=== PATIENT | male | born 1990 | race American Indian/Alaskan Native ===

== ENCOUNTER 2017-04-16 06:28 | Inpatient (IN) | payer MEDICAID ==
[2017-04-16 06:33] VITALS: O2SAT 98; BMI 36.5
--- NOTE | 2017-04-16 06:46 | ED PDOC ---
Arrival/HPI - General Chief Complaint: Medical Clearance Time Seen by Provider: 04/16/17 06:43 - History of Present Illness Narrative History of Present Illness (Text): 04/16/17 06:43 26yo male, transferred from outpatient facility for admission to [facility]. patient states he has suicidal ideations with plan to cut his wrists. Denies homicidal ideations. States he has depressive thoughts. denies chest pain , SOB/MOSQUERA. No other complaints. Past Medical History - Infectious Disease Hx of Infectious Diseases: None - Psychiatric Hx Anxiety: Yes Hx Depression: Yes Hx Substance Use: No - Surgical History Hx Orthopedic Surgery: Yes (L knee surgery) - Anesthesia Hx Anesthesia: Yes Family/Social History - Physician Review Nursing Documentation Reviewed: Yes Family/Social History: Unknown Family HX Smoking Status: Never Smoked Hx Alcohol Use: No Hx Substance Use: No Allergies/Home Meds Allergies/Adverse Reactions: Allergies No Known Allergies Allergy (Verified 04/16/17 06:33) Physical Exam - Physical Exam Narrative Physical Exam (Text): 04/16/17 06:45 - Review of Systems Constitutional: Normal. absent: Fatigue, Weight Change, Fevers Eyes: Normal ENT: denies sore throat, denies tristhmus Respiratory: Normal. absent: SOB, Cough, Sputum Cardiovascular: absent: Chest Pain, Palpitations, Syncope Gastrointestinal: Normal. absent: Abdominal Pain, Diarrhea, Nausea, Vomiting Genitourinary: Normal. absent: Dysuria, Frequency, Hematuria Musculoskeletal: Normal. absent: Arthralgias, Back Pain, Neck Pain Skin: no rashes, no erythema Neurological: absent: Focal Weakness Endocrine: Normal Hemo/Lymphatic: Normal Psychiatric: No homicidal ideations. Depressive thoughts and suicidal ideations. Physical exam Patient appears age appropriate in no distress, speaking full sentences without difficulty - Systems Exam Head: Present: Atraumatic, Normocephalic Pupils: Present: PERRL Extroacular Muscles: Present: EOMI Conjunctiva: Present: Normal Mouth: Present: Moist Mucous Membranes Neck: Present: Normal Range of Motion. No: MIDLINE TENDERNESS, Paraspinal Tenderness Respiratory/Chest: Present: Clear to Auscultation, Good Air Exchange. No: Respiratory Distress, Accessory Muscle Use, Tachypneic Cardiovascular: Present: Regular Rate and Rhythm, Normal S1, S2, Peripheal Pulses Present. No: Murmurs Abdomen: Present: Normal Bowel Sounds. No: Tenderness, Distention, Peritoneal Signs, Rebound, Guarding Back: Present: Normal Inspection. No: Midline Tenderness, Paraspinal Tenderness Upper Extremity: Present: Normal Inspection. No: Cyanosis, Edema Lower Extremity: Present: Normal Inspection. No: Edema Neurological: Present: GCS=15, Speech Normal, cranial nerves II through XII fully intact with no cerebellar abnormality, neurosensory fully intact. No focal neurological deficits. Skin: Present: Warm, Dry, Normal Color. No: Rashes Lymphatic: Present: OX3, NI, NC Psychiatric: Present: Alert, Oriented x 3, Normal Insight, Normal Concentration Vital Signs Reviewed: Yes Vital Signs Temp Pulse Resp BP Pulse Ox 04/16/17 06:33 98.3 F 82 18 140/70 98 Temperature: Afebrile Blood Pressure: Normal Pulse: Regular Respiratory Rate: Normal Appearance: Positive for: Well-Appearing Pain Distress: None Mental Status: Positive for: Alert and Oriented X 3 Medical Decision Making ED Course and Treatment: 04/16/17 06:45 26yo male for psych admission for suicidal ideations and depressive thoughts. pt in no distress, aware of and agrees with plan Disposition/Present on Arrival - Present on Arrival Any Indicators Present on Arrival: No History of DVT/PE: No History of Uncontrolled Diabetes: No Urinary Catheter: No History of Decub. Ulcer: No History Surgical Site Infection Following: None - Disposition Have Diagnosis and Disposition been Completed?: Yes Diagnosis: Suicidal ideations Disposition: HOSPITALIZED Disposition Time: 06:46 Patient Plan: Admission Condition: FAIR
[2017-04-16] MEDS ORDERED: Alum-Mag Hydrox-Simethicone Susp (30 mL) PO PRN (10:31)
[2017-04-16] MEDS ORDERED: Magnesium Hydroxide Susp 30 ml UD PO PRN (10:31)
--- NOTE | 2017-04-16 12:31 | PCM.BM ---
<Pat Dong - Last Filed: 04/16/17 14:13> Treatment Plan Problems - Problems identified on initial assessmt hallucination Date Initiated: 04/16/17 Time Initiated: 14:19 Assessment reference: NA Status: Active Priority: 1 Treatment team patient informa Patient Assests: adapts well, ADL independent, negotiates basic needs Patient Liabilities: live alone, poor support system, auditory impairment - Milieu Protocol Maintain good personal hygiene: daily Encourage regular showers, daily Remind patient to perform daily oral care, daily Assist patient to perform ADL's Maintain personal safety: every shift Educate patient to report safety concerns to staff, every shift Monitor environment for contraband/sharps Medication safety: Monitor for expected outcome, potential side effects: every shift, Assess barriers to learning: every shift, Assess readiness for medication education: every shift Discharge/Continuing Care - Education Needs Education Needs: Patient Medication, Patient Diagnosis/Disease Process, Patient Coping Skills, Patient Activities of Daily Living, Patient Personal Hygiene/ Grooming - Discharge Discharge Criteria: Tolerates medication w/o severe side effects, Free of Suicidal thoughts, Normal sleep pattern Discharge to:: Home <Mica Burdick - Last Filed: 04/16/17 15:10> Family Contact Family involvement: Family/SO is involved Family contact: Patient agrees to contact Family contact name: Rolanda Arellano(mother) [phone] Family contacted how many times per week?: 2 - Outside Agency [facility] Care involvment: Following patient during stay, Information-sharing, Not involved, N/A, Other <Giselle Baker - Last Filed: 04/16/17 15:53> DSM5-Treatment Plan - Diagnosis (1) Schizoaffective disorder Status: Acute Interventions: 04/16/17 15:52 * Assess/adjust medications daily and /or as needed * See patient on an individual basis 7x/week to assess status of hallucinations * Discuss risks, benefits, side effects and alternatives of medications * Medication compliance * Compliance with the follow-up appointments * suicide and homicide prevention * Coping strategies * Family involvement * irrigation worker evaluation
--- NOTE | 2017-04-16 14:27 | PCM.BM ---
Treatment Plan Problems - Problems identified on initial assessmt hallucination Time Initiated: 14:19 Assessment reference: NA Status: Active Priority: 1 depression Date Initiated: 04/16/17 Time Initiated: 14:26 Assessment reference: NA Status: Active Priority: 1 Treatment team patient informa Patient Assests: adapts well, ADL independent, negotiates basic needs Patient Liabilities: live alone, poor support system, auditory impairment - Milieu Protocol Maintain good personal hygiene: daily Encourage regular showers, daily Remind patient to perform daily oral care, daily Assist patient to perform ADL's Maintain personal safety: every shift Educate patient to report safety concerns to staff, every shift Monitor environment for contraband/sharps Medication safety: Monitor for expected outcome, potential side effects: every shift, Assess barriers to learning: every shift, Assess readiness for medication education: every shift Discharge/Continuing Care - Education Needs Education Needs: Patient Medication, Patient Diagnosis/Disease Process, Patient Coping Skills, Patient Activities of Daily Living, Patient Personal Hygiene/ Grooming - Discharge Discharge Criteria: Tolerates medication w/o severe side effects, Free of Suicidal thoughts, Normal sleep pattern Discharge to:: Home
--- NOTE | 2017-04-16 16:30 | PCM.PSYCH ---
Initial Psychiatric Evaluation - Initial Psychiatric Evaluation Type of Admission: Voluntary Legal Status: Capacity (patient has capacity to sign consent for treatment) Chief Complaint (in patient's own words): "sykes-sykes I just heard something from outside" Vital Signs Temp Pulse Resp BP Pulse Ox 04/16/17 09:50 18 04/16/17 08:09 85 16 116/84 98 04/16/17 06:33 98.3 F 82 18 140/70 98 Patient's Reaction to Hospitalization: depression/psychosis/possible suicidal ideation History of Present Illness and Precipitating Events: shortly patient is 26 years old -Japanese male, self reported history of depression, most likely patient has case of schizophrenia spectrum disorder, patient was transferred [facility] for evaluation of possible depressive symptoms and suicidal ideations. off note from the [facility] reported patient came there for abdominal pain at the moment of discharge patient said that he hears voices and he has thoughts of harming himself. labs reviewed, transfer documents reviewed pt was seen at the treatment team meeting, presented to have catatonia, flat affect, slow motion, severe thought blocking, difficult to express himself, ADLs. Patient said that she was depressed, was not taking his medications Zoloft, patient said that he was feeling hopeless and helpless, was hearing voices "a little bit", denied paranoid ideations. Patient denied previous psychiatric admissions, denied suicidal attempts in the past. but as per report from [facility] patient was followed up by [facility] [place] but was noncompliant with the medications , was in partial hospitalization but not attending, was on zyprexa 10mg po daily. Patient denied using drugs, reported smoking about 10 cigarettes a day, counseling provided. Patient denied using drugs, denied drinking alcohol. Patient reported that he has no support in the [place], his mother and father from [facility], patient said that he came here to the [place] at age of 16 all by himself. Patient does not have history of working, collapsed SSI, patient is homeless. During the treatment team meeting, all of a sudden patient started to laugh out loud, when was asked why he is watching patient said "I heard something from outside". Obviously patient is psychotic and disorganized and internally preoccupied. Medical history: pt denied pt denied h/o abuse pt denied family h/o mental illness Current Medications: Active Medications Generic Name Dose Route Start Last Admin Trade Name Freq PRN Reason Stop Dose Admin Acetaminophen 650 mg 04/16/17 10:29 Tylenol 325mg Tab PO Q6H PRN Pain, moderate (4-7) Al Hydrox/Mg Hydrox/Simethicone 30 ml 04/16/17 10:31 Maalox Plus 30 Ml PO DAILY PRN Indigestion / Heartburn Lorazepam 0.5 mg 04/16/17 16:00 Ativan PO BID REINA Protocol Magnesium Hydroxide 30 ml 04/16/17 10:31 Milk Of Magnesia PO DAILY PRN Constipation Nicotine 1 patch 04/16/17 14:30 Nicoderm Cq TD DAILY REINA Risperidone 0.5 mg 04/16/17 22:00 Risperdal Tab PO AMHS REINA Protocol Risperidone 0.5 mg 04/17/17 08:00 Risperdal Tab PO DAILY REINA Protocol Sertraline HCl 50 mg 04/16/17 14:15 Zoloft PO DAILY REINA Trazodone HCl 50 mg 04/16/17 14:17 Desyrel PO HS PRN Insomnia Ziprasidone 20 mg 04/16/17 14:16 Geodon Inj IM Q6H PRN agitation/pscyhosis Protocol Past Psychiatric History - Past Psychiatric History Previous Treatment History: None Prior Professional Help: pt denied, but this wrier doubt Prior Psychiatric Treatment: pt denied At what hospital: pt denied Duration: pt denied Nature of Treatment: pt denied Explanation of prior treatment: pt denied History of Abuse: pt denied History of ETOH/Drug Use: pt denied History of Family Illness: pt denied Pertinent Medical Hx (Current Medical&Sleep Prob, Allergies): Allergies Allergy/AdvReac Type Severity Reaction Status Date / Time No Known Allergies Allergy Verified 04/16/17 10:33 Review of Systems - Review of Systems Systems not reviewed;Unavailable: Acuity of Condition - EENT Eyes: As Per HPI Ears: As Per HPI Nose/Mouth/Throat: As Per HPI - Cardiovascular Cardiovascular: As Per HPI - Respiratory Respiratory: As Per HPI - Gastrointestinal Gastrointestinal: As Per HPI - Genitourinary Genitourinary: As Per HPI - Reproductive: Male Reproductive:Male: As Per HPI - Musculoskeletal Musculoskeletal: As Par HPI - Integumentary Integumentary: As Per HPI - Neurological Neurological: As Per HPI - Psychiatric Psychiatric: As Per HPI - Endocrine Endocrine: As Per HPI - Hematologic/Lymphatic Hematologic: As Per HPI Mental Status Examination - Personal Presentation Personal Presentation: Looks stated age - Affect Affect: Flat, Other (at times inappropriate) - Motor Activity Motor Activity: Psychomotor Retardation - Reliability in Providing Information Reliability in Providing Information: Poor, due to alteration in thoughts, Poor , due to altered mood, Poor, due to cognitve impairment - Speech Speech: Disorganized - Mood Mood: Depressed - Formal Thought Process Formal Thought Process: Hallucinations, Delusions, Paranoia, Other (thought blocking, poverty of thoughts) - Hallucinations/Delusions Hallucinations: Auditory - Obsessions/Compulsions Obsessions: None Compulsions: None - Cognitive Functions Orientation: Person, Place Sensorium: Alert Attention/Concentration: Easily distracted Abstract Thinking: [place] Estimate of Intelligence: Below average Judgement: Intact, as evidence by: Insight regarding need for hospitalization - Risk Risk: Self-mutilation, Diminished functioning - Strength & Assets Inventory Strength & Assets Inventory: Cooperative - Limitations Limitations: Other (poor socidal support, homelessness, noncompliance with meds) DSM 5 DX - DSM 5 DSM 5 Diagnosis: r/o schizoaffective r/o schizophrenia - Recommended/Plan of Treatment Treatment Recommendations and Plan of Treatment: Milieu, structure, supportive therapy zyprexa 5mg po amhs (as per report pt was on 10mg daily) Zoloft will be resumed 50 mg daily for depressive symptoms Ativan 0.5 mg twice a day for catatonia Trazodone 50 mg at the nighttime for insomnia as needed Medical team evaluation Collateral needs to be obtained chute worker evaluation We will monitor closely Projected ELOS: 7 days Prognosis: fair Discharge Plan and Discharge Criteria: Pt will be not depressed or manic, will be more hopeful, will be not psychotic or anxious, will be not having thoughts of harming self or others, will be tolerating medications well, will not have major side effects, will be able to function, will not pose threat to self or others. - Smoking Cessation Smoking Cessation Initiated: Yes
[2017-04-16] MEDS ORDERED: OLANZapine 5 mg Disintegrating Tab PO STA (18:24)
[2017-04-16] MEDS ORDERED: Divalproex 250 mg DR (BID formulation) PO STA (18:32)
[2017-04-16] MEDS: OLANZapine 5 mg Disintegrating Tab PO SCH (22:33)
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
[2017-04-17] MEDS: Divalproex 250 mg DR (BID formulation) PO SCH ×2 (10:53→16:46)
[2017-04-17] MEDS: OLANZapine 5 mg Disintegrating Tab PO SCH ×2 (10:53→21:07)
--- NOTE | 2017-04-17 12:11 | CP.PCM.CON ---
<RaghavKati sweets - Last Filed: 04/17/17 12:13> History of Present Illness - History of Present Illness History of Present Illness: This is a 26 yo male with past medical hx of depression presenting to hospital with suicidal ideation. Medical consult placed. Pt has suicidal thoughts with thoughts of ending his life. He has a hx of depression for some time now. He wants to kill himself bc he is "always by himself." He has had no plan. He has tried before, cannot say how. He is not hearing any voices. He uses few words when talking. He denies other medical issues. No fevers, chills, vomiting, diarrhea, cp, sob, urinary sx. PMH: Depression PSH: None Allergies: NKDA FH: denies Social hx: No smoking. Heavy drinker. Cocaine use. Stays with friends. Used to work at [employer]. Review of Systems - Review of Systems All systems: reviewed and no additional remarkable complaints except Review of Systems: Negative except per HPI. Past Patient History - Infectious Disease Hx of Infectious Diseases: None - Tetanus Immunizations Tetanus Immunization: Unknown - Past Medical History & Family History Past Medical History?: Yes Past Family History: Reviewed and not pertinent - Past Social History Smoking Status: Never Smoked Cigar Use: No Alcohol: > 2 Drinks/Day Drugs: Cocaine Home Situation {Lives}: Friends Domestic Violence: Negative - CARDIAC Hx Cardiac Disorders: No - PULMONARY Hx Respiratory Disorders: No - NEUROLOGICAL Hx Neurological Disorder: No - HEENT Hx HEENT Problems: No - RENAL Hx Chronic Kidney Disease: No - ENDOCRINE/METABOLIC Hx Endocrine Disorders: No - HEMATOLOGICAL/ONCOLOGICAL Hx Blood Disorders: No - INTEGUMENTARY Hx Dermatological Problems: No - MUSCULOSKELETAL/RHEUMATOLOGICAL Hx Musculoskeletal Disorders: No - GASTROINTESTINAL Hx Gastrointestinal Disorders: No - GENITOURINARY/GYNECOLOGICAL Hx Genitourinary Disorders: No - PSYCHIATRIC Hx Anxiety: Yes Hx Depression: Yes Hx Emotional Abuse: No Hx Physical Abuse: No Hx Sexual Abuse: No Hx Substance Use: No - SURGICAL HISTORY Hx Surgeries: Yes Hx Orthopedic Surgery: Yes (L knee surgery) - ANESTHESIA Hx Anesthesia: Yes Meds Allergies/Adverse Reactions: Allergies Allergy/AdvReac Type Severity Reaction Status Date / Time No Known Allergies Allergy Verified 04/16/17 10:33 - Medications Medications: Current Medications Acetaminophen (Tylenol 325mg Tab) 650 mg PO Q6H PRN PRN Reason: Pain, moderate (4-7) Al Hydrox/Mg Hydrox/Simethicone (Maalox Plus 30 Ml) 30 ml PO DAILY PRN PRN Reason: Indigestion / Heartburn Divalproex Sodium (Depakote Dr (*Bid*)) 250 mg PO BID REINA PRN Reason: Protocol Last Admin: 04/17/17 10:53 Dose: 250 mg Lorazepam (Ativan) 0.5 mg PO BID REINA PRN Reason: Protocol Last Admin: 04/17/17 08:25 Dose: 0.5 mg Magnesium Hydroxide (Milk Of Magnesia) 30 ml PO DAILY PRN PRN Reason: Constipation Nicotine (Nicoderm Cq) 1 patch TD DAILY [facility] Last Admin: 04/17/17 08:25 Dose: 1 patch Olanzapine (Zyprexa Zydis) 5 mg PO DAILY REINA PRN Reason: Protocol Olanzapine (Zyprexa Zydis) 10 mg PO HS REINA PRN Reason: Protocol Sertraline HCl (Zoloft) 50 mg PO DAILY [facility] Last Admin: 04/17/17 08:25 Dose: 50 mg Trazodone HCl (Desyrel) 50 mg PO HS PRN PRN Reason: Insomnia Ziprasidone (Geodon Inj) 20 mg IM Q6H PRN; Protocol PRN Reason: agitation/pscyhosis Last Admin: 04/16/17 19:53 Dose: 20 mg Ziprasidone (Geodon Cap) 20 mg PO Q6 PRN; Protocol PRN Reason: Agitation Physical Exam - Constitutional Appears: Non-toxic, No Acute Distress - Head Exam Head Exam: ATRAUMATIC, NORMAL INSPECTION, NORMOCEPHALIC - Eye Exam Eye Exam: EOMI - ENT Exam ENT Exam: Mucous Membranes Moist - Neck Exam Neck exam: Positive for: Full Rom, Normal Inspection - Respiratory Exam Respiratory Exam: NORMAL BREATHING PATTERN. absent: Respiratory Distress - Cardiovascular Exam Cardiovascular Exam: +S1, +S2 - GI/Abdominal Exam GI & Abdominal Exam: Normal Bowel Sounds, Soft. absent: Tenderness - Extremities Exam Extremities exam: Positive for: full ROM, normal inspection - Back Exam Back exam: NORMAL INSPECTION - Neurological Exam Neurological exam: Alert, Oriented x3 - Psychiatric Exam Psychiatric exam: Normal Affect, Normal Mood - Skin Skin Exam: Dry, Intact, Normal Color, Warm Results - Vital Signs Recent Vital Signs: Last Vital Signs Temp 98.3 F 04/16/17 06:33 Pulse 103 H 04/16/17 16:14 Resp 18 04/16/17 09:50 BP 129/86 04/16/17 16:14 Pulse Ox 98 04/16/17 08:09 Assessment & Plan - Assessment and Plan (Free Text) Assessment: This is a 26 yo male with past medical hx of depression presenting for suicidal ideation. Medical consult placed 1. Depression r/o major depressive disorder -management per psych -cbc, cmp -ua, urine culture -tsh -lipid panel -blood glucose -tylenol for pain -1:1 sitter 2. Suicidal ideation -no active thoughts or plan -management per psych -1:1 sitter 3. Regular diet discussed with Dr. Rod <Josh Rod - Last Filed: 04/17/17 16:41> Meds - Medications Medications: Current Medications Acetaminophen (Tylenol 325mg Tab) 650 mg PO Q6H PRN PRN Reason: Pain, moderate (4-7) Al Hydrox/Mg Hydrox/Simethicone (Maalox Plus 30 Ml) 30 ml PO DAILY PRN PRN Reason: Indigestion / Heartburn Divalproex Sodium (Depakote Dr (*Bid*)) 250 mg PO BID REINA PRN Reason: Protocol Last Admin: 04/17/17 10:53 Dose: 250 mg Lorazepam (Ativan) 0.5 mg PO BID REINA PRN Reason: Protocol Last Admin: 04/17/17 08:25 Dose: 0.5 mg Magnesium Hydroxide (Milk Of Magnesia) 30 ml PO DAILY PRN PRN Reason: Constipation Nicotine (Nicoderm Cq) 1 patch TD DAILY REINA Last Admin: 04/17/17 08:25 Dose: 1 patch Olanzapine (Zyprexa Zydis) 5 mg PO DAILY REINA PRN Reason: Protocol Olanzapine (Zyprexa Zydis) 10 mg PO HS REINA PRN Reason: Protocol Sertraline HCl (Zoloft) 50 mg PO DAILY REINA Last Admin: 04/17/17 08:25 Dose: 50 mg Trazodone HCl (Desyrel) 50 mg PO HS PRN PRN Reason: Insomnia Ziprasidone (Geodon Inj) 20 mg IM Q6H PRN; Protocol PRN Reason: agitation/pscyhosis Last Admin: 04/16/17 19:53 Dose: 20 mg Ziprasidone (Geodon Cap) 20 mg PO Q6 PRN; Protocol PRN Reason: Agitation Results - Vital Signs Recent Vital Signs: Last Vital Signs Temp 98.3 F 04/16/17 06:33 Pulse 103 H 04/16/17 16:14 Resp 18 04/16/17 09:50 BP 129/86 04/16/17 16:14 Pulse Ox 98 04/16/17 08:09 Attending/Attestation - Attestation I have personally seen and examined this patient.: Yes I have fully participated in the care of the patient.: Yes I have reviewed all pertinent clinical information: Yes Notes (Text): 04/17/17 16:37 MEDICAL CONSULTATION 26 year old male with past medical history of depression who presented with depressed mood, suicidal ideation and paranoid thoughts. Continue with present management as per psychiatry. 1:1 sitter was also present at bedside. Routine labs including CBC, BMP, UA, lipid panel and TSH were ordered. However patient is refusing labs. Thank you Dr. Baker / Dr. Carver for allowing us to participate in the care of this patient. Recommend routine labs as above. We will follow peripherally or re-consult as needed. Josh Rod MD Hospitalist.
--- NOTE | 2017-04-18 01:06 | CP.PCM.PN ---
Subjective - Date & Time of Evaluation Date of Evaluation: 04/18/17 Time of Evaluation: 01:04 - Subjective Subjective: S:Requests a sleeping pill. Wandering around in the lobby. Has no other complaints. Medical record was reviewed. O: Last Vital Signs 3 Temp 98.3 F 04/16/17 06:33 Pulse 103 H 04/16/17 16:14 Resp 18 04/16/17 09:50 BP 129/86 04/16/17 16:14 Pulse Ox 98 04/16/17 08:09 Awake, alert, not in distress. LUNGS: Normal breathing pattern. NEURO: Speech normal. A:Adjustment insomnia. P:Benadryl 100 mg PO x 1. Objective - Vital Signs/Intake and Output Vital Signs (last 24 hours): Temp Pulse Resp BP Pulse Ox 98.3 F 103 H 18 129/86 98 04/16/17 06:33 04/16/17 16:14 04/16/17 09:50 04/16/17 16:14 04/16/17 08:09 - Medications Medications: Current Medications Acetaminophen (Tylenol 325mg Tab) 650 mg PO Q6H PRN PRN Reason: Pain, moderate (4-7) Al Hydrox/Mg Hydrox/Simethicone (Maalox Plus 30 Ml) 30 ml PO DAILY PRN PRN Reason: Indigestion / Heartburn Diphenhydramine HCl (Benadryl) 100 mg PO STAT STA Stop: 04/18/17 01:04 Divalproex Sodium (Depakote Dr (*Bid*)) 250 mg PO BID REINA PRN Reason: Protocol Last Admin: 04/17/17 16:46 Dose: 250 mg Lorazepam (Ativan) 0.5 mg PO BID REINA PRN Reason: Protocol Last Admin: 04/17/17 16:46 Dose: 0.5 mg Magnesium Hydroxide (Milk Of Magnesia) 30 ml PO DAILY PRN PRN Reason: Constipation Nicotine (Nicoderm Cq) 1 patch TD DAILY REINA Last Admin: 04/17/17 08:25 Dose: 1 patch Olanzapine (Zyprexa Zydis) 5 mg PO DAILY REINA PRN Reason: Protocol Olanzapine (Zyprexa Zydis) 10 mg PO HS REINA PRN Reason: Protocol Last Admin: 04/17/17 21:07 Dose: 10 mg Sertraline HCl (Zoloft) 50 mg PO DAILY REINA Last Admin: 04/17/17 08:25 Dose: 50 mg Trazodone HCl (Desyrel) 50 mg PO HS PRN PRN Reason: Insomnia Last Admin: 04/17/17 21:07 Dose: 50 mg Ziprasidone (Geodon Inj) 20 mg IM Q6H PRN; Protocol PRN Reason: agitation/pscyhosis Last Admin: 04/17/17 19:16 Dose: 20 mg Ziprasidone (Geodon Cap) 20 mg PO Q6 PRN; Protocol PRN Reason: Agitation Last Admin: 04/17/17 22:33 Dose: 20 mg
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
[2017-04-18] MEDS: Divalproex 250 mg DR (BID formulation) PO SCH ×2 (10:46→21:15)
[2017-04-18] MEDS: OLANZapine 5 mg Disintegrating Tab PO SCH ×2 (10:47→21:15)
--- NOTE | 2017-04-18 11:10 | CP.PCM.PN ---
Subjective - Date & Time of Evaluation Date of Evaluation: 04/18/17 Time of Evaluation: 10:15 - Subjective Subjective: Patient seen at the request of his RN who stated pt is in 4 pt restraints ,and needs to be assessed for continuing the same. He was admitted for Suicidal ideation 2days ago.He states he has Depression. Has been indulging in paranoid and disruptive behavior this AM,Morales herbert was called.Additional help was sought from the Police ,pt was medicated and placed in 4 pt leather restraints. Thereafter I was called. Patient is in the seclusion room.He is in 4 pt. leather restraints,says"you don' t like me I know.Get me out of these restraints."He admits to hearing voices, but does not elaborate further. VS are stable. PMH: Paranoid Schizophrenia(as per pt) Objective - Vital Signs/Intake and Output Vital Signs (last 24 hours): Temp Pulse Resp BP Pulse Ox 98.3 F 103 H 18 129/86 98 04/16/17 06:33 04/16/17 16:14 04/16/17 09:50 04/16/17 16:14 04/16/17 08:09 - Medications Medications: Current Medications Acetaminophen (Tylenol 325mg Tab) 650 mg PO Q6H PRN PRN Reason: Pain, moderate (4-7) Al Hydrox/Mg Hydrox/Simethicone (Maalox Plus 30 Ml) 30 ml PO DAILY PRN PRN Reason: Indigestion / Heartburn Divalproex Sodium (Depakote Dr (*Bid*)) 750 mg PO HS REINA PRN Reason: Protocol Divalproex Sodium (Depakote Er(Once Daily)) 500 mg PO DAILY REINA Lorazepam (Ativan) 0.5 mg PO BID REINA PRN Reason: Protocol Last Admin: 04/17/17 16:46 Dose: 0.5 mg Magnesium Hydroxide (Milk Of Magnesia) 30 ml PO DAILY PRN PRN Reason: Constipation Nicotine (Nicoderm Cq) 1 patch TD DAILY REINA Last Admin: 04/17/17 08:25 Dose: 1 patch Olanzapine (Zyprexa Zydis) 5 mg PO DAILY REINA PRN Reason: Protocol Olanzapine (Zyprexa Zydis) 10 mg PO HS REINA PRN Reason: Protocol Last Admin: 06/24/17 21:07 Dose: 10 mg Sertraline HCl (Zoloft) 50 mg PO DAILY REINA Last Admin: 04/17/17 08:25 Dose: 50 mg Trazodone HCl (Desyrel) 100 mg PO HS PRN PRN Reason: Insomnia Ziprasidone (Geodon Inj) 20 mg IM Q6H PRN; Protocol PRN Reason: agitation/pscyhosis Last Admin: 04/17/17 19:16 Dose: 20 mg Ziprasidone (Geodon Cap) 20 mg PO Q6 PRN; Protocol PRN Reason: Agitation Last Admin: 04/17/17 22:33 Dose: 20 mg - Constitutional Appears: No Acute Distress - Head Exam Head Exam: NORMAL INSPECTION - Eye Exam Eye Exam: PERRL - ENT Exam ENT Exam: Mucous Membranes Moist - Neck Exam Neck Exam: Normal Inspection - Respiratory Exam Respiratory Exam: Clear to Ausculation Bilateral - Cardiovascular Exam Cardiovascular Exam: REGULAR RHYTHM - GI/Abdominal Exam GI & Abdominal Exam: Soft, Normal Bowel Sounds. absent: Tenderness - Extremities Exam Extremities Exam: Normal Inspection Additional comments: all 4 limbs are in leather restraints. - Neurological Exam Neurological Exam: Alert, Awake, Oriented x3 - Skin Skin Exam: Dry, Warm Assessment and Plan - Assessment and Plan (Free Text) Assessment: Agitated,disruptive behavior Plan: Orders placed to continue 4 pt leather restraints. PMD( Dr Carver) was notified.She requested for [facility] to evaluate pt for involuntary confinement.
--- NOTE | 2017-04-18 14:56 | CP.PCM.PN ---
Subjective - Date & Time of Evaluation Date of Evaluation: 04/18/17 Time of Evaluation: 14:30 - Subjective Subjective: Pt seen for follow up and renewal of restraints. He is currently sleeping.According to his RN he just fell asleep. He appears to be comfortable clinically Plan :will re order 4 point leather restraints. Objective - Vital Signs/Intake and Output Vital Signs (last 24 hours): Temp Pulse Resp BP Pulse Ox 98.3 F 69 18 119/67 98 04/16/17 06:33 04/17/17 12:28 04/16/17 09:50 04/17/17 12:28 04/16/17 08:09 - Medications Medications: Current Medications Acetaminophen (Tylenol 325mg Tab) 650 mg PO Q6H PRN PRN Reason: Pain, moderate (4-7) Al Hydrox/Mg Hydrox/Simethicone (Maalox Plus 30 Ml) 30 ml PO DAILY PRN PRN Reason: Indigestion / Heartburn Divalproex Sodium (Depakote Dr (*Bid*)) 750 mg PO HS REINA PRN Reason: Protocol Divalproex Sodium (Depakote Er(Once Daily)) 500 mg PO DAILY REINA Lorazepam (Ativan) 0.5 mg PO BID REINA PRN Reason: Protocol Last Admin: 04/18/17 10:44 Dose: 0.5 mg Magnesium Hydroxide (Milk Of Magnesia) 30 ml PO DAILY PRN PRN Reason: Constipation Nicotine (Nicoderm Cq) 1 patch TD DAILY REINA Last Admin: 04/17/17 08:25 Dose: 1 patch Olanzapine (Zyprexa Zydis) 5 mg PO DAILY REINA PRN Reason: Protocol Last Admin: 04/18/17 10:47 Dose: 5 mg Olanzapine (Zyprexa Zydis) 10 mg PO HS REINA PRN Reason: Protocol Last Admin: 04/17/17 21:07 Dose: 10 mg Sertraline HCl (Zoloft) 50 mg PO DAILY REINA Last Admin: 04/18/17 10:46 Dose: 50 mg Trazodone HCl (Desyrel) 100 mg PO HS PRN PRN Reason: Insomnia Ziprasidone (Geodon Inj) 20 mg IM Q6H PRN; Protocol PRN Reason: agitation/pscyhosis Last Admin: 04/18/17 10:48 Dose: 20 mg Ziprasidone (Geodon Cap) 20 mg PO Q6 PRN; Protocol PRN Reason: Agitation Last Admin: 04/17/17 22:33 Dose: 20 mg
[2017-04-18 15:34] LABS: ADD MANUAL DIFF? NO
[2017-04-18 15:50] LABS: BASO # 0.01 K/mm3 (0.0-2.0); BASO % 0.2 % (0.0-3.0); EOS # 0.3 (0.0-0.7); EOS % 4.9 % (1.5-5.0); GRAN # 2.81 (1.4-6.5); GRAN % 51.4 % (50.0-68.0); HEMATOCRIT 41.5 % (42.0-52.0); LYMPH # 1.8 (1.2-3.4); LYMPH % 33.2 % (22.0-35.0); MEAN CELL VOLUME 64.7 fL (80.0-105.0); MEAN CORPUSCULAR HEMOGLOBIN 20.4 pg (25.0-35.0); MEAN CORPUSCULAR HGB CONC 31.6 g/dl (31.0-37.0); MEAN PLATELET VOLUME 9.1 fl (7.0-11.0); MONO # 0.6 (0.1-0.6); MONO % 10.3 % (1.0-6.0); PLATELET COUNT 231 10^3/uL (120.0-450.0); RED CELL DISTRIBUTION WIDTH 16.3 % (11.5-14.5); WHITE BLOOD COUNT 5.5 10^3/ul (4.5-11.0)
[2017-04-18 15:59] LABS: ALB/GLOB RATIO 1.2 (1.1-1.8); ALKALINE PHOSPHATASE 85 U/L (38-133); ALT/SGPT 91 U/L (7-56); AST/SGOT 36 U/L (15-59); BILIRUBIN,TOTAL 0.3 mg/dL (0.2-1.3); BLOOD UREA NITROGEN 11 mg/dL (7-21); CALCIUM 9.6 mg/dL (8.4-10.5); CARBON DIOXIDE 30 mmol/L (21-33); CHLORIDE 102 mmol/L (98-107); CHOLESTEROL 130 mg/dL (130-200); GFR AFRICAN-AMERICAN > 60; GLUCOSE,FASTING 87 mg/dL (65-110); GLUCOSE,RANDOM 87 mg/dL (70-110); POTASSIUM 4.1 mmol/L (3.6-5.0); SODIUM 139 mmol/L (132-148)
[2017-04-18 16:06] LABS: ALCOHOL SERUM < 10 mg/dL (0-10)
[2017-04-18 16:06] LABS: PH,URINE 7.5 (4.7-8.0); URINE BILIRUBIN NEGATIVE (NEGATIVE); URINE BLOOD NEGATIVE (NEGATIVE); URINE GLUCOSE (UA) NEGATIVE (NEGATIVE); URINE KETONE NEGATIVE (NEGATIVE); URINE LEUKOCYTE ESTERASE NEGATIVE Leu/uL (NEGATIVE); URINE PROTEIN TRACE mg/dL (<30 mg/dL); URINE UROBILINOGEN 0.2 E.U./dL (<1 E.U./dL)
[2017-04-18 16:07] LABS: URINE APPEARANCE CLEAR (CLEAR); URINE COLOR YELLOW (YELLOW)
[2017-04-18 16:15] LABS: URINE BACTERIA MOD (NEG); URINE RBC 0 - 2 /hpf (0-2)
[2017-04-18 16:16] LABS: URINE AMORPHOUS SEDIMENT FEW
[2017-04-18 16:35] LABS: THYROID STIMULATING HORMONE 0.33 mIU/mL (0.46-4.68)
[2017-04-18 16:49] VITALS: RESP 20
--- NOTE | 2017-04-18 20:13 | CP.PCM.PN ---
Subjective - Date & Time of Evaluation Date of Evaluation: 04/18/17 Time of Evaluation: 20:10 - Subjective Subjective: S:Seen for renewal of restraints. Has no complaints. Expresses to release him from restraint. As per nurse has intermittent behavioral problem. O: Last Vital Signs 3 Temp 98.0 F 04/17/17 10:00 Pulse 89 04/18/17 16:47 Resp 20 04/17/17 10:00 BP 125/80 04/18/17 16:47 Pulse Ox 98 04/16/17 08:09 A:Psychotic behaviour. In remission now. P:Will keep in only seclusion as per discussion with the nurse now. Objective - Vital Signs/Intake and Output Vital Signs (last 24 hours): Temp Pulse Resp BP Pulse Ox 98.0 F 89 20 125/80 98 04/17/17 10:00 04/18/17 16:47 04/17/17 10:00 04/18/17 16:47 04/16/17 08:09 - Medications Medications: Current Medications Acetaminophen (Tylenol 325mg Tab) 650 mg PO Q6H PRN PRN Reason: Pain, moderate (4-7) Al Hydrox/Mg Hydrox/Simethicone (Maalox Plus 30 Ml) 30 ml PO DAILY PRN PRN Reason: Indigestion / Heartburn Divalproex Sodium (Depakote Dr (*Bid*)) 750 mg PO HS REINA PRN Reason: Protocol Divalproex Sodium (Depakote Er(Once Daily)) 500 mg PO DAILY REINA Lorazepam (Ativan) 0.5 mg PO BID REINA PRN Reason: Protocol Last Admin: 04/18/17 19:06 Dose: 0.5 mg Magnesium Hydroxide (Milk Of Magnesia) 30 ml PO DAILY PRN PRN Reason: Constipation Nicotine (Nicoderm Cq) 1 patch TD DAILY [facility] Last Admin: 04/18/17 19:14 Dose: Not Given Olanzapine (Zyprexa Zydis) 5 mg PO DAILY REINA PRN Reason: Protocol Last Admin: 04/18/17 10:47 Dose: 5 mg Olanzapine (Zyprexa Zydis) 10 mg PO HS REINA PRN Reason: Protocol Last Admin: 04/17/17 21:07 Dose: 10 mg Sertraline HCl (Zoloft) 50 mg PO DAILY [facility] Last Admin: 04/18/17 10:46 Dose: 50 mg Trazodone HCl (Desyrel) 100 mg PO HS PRN PRN Reason: Insomnia Ziprasidone (Geodon Inj) 20 mg IM Q6H PRN; Protocol PRN Reason: agitation/pscyhosis Last Admin: 04/18/17 10:48 Dose: 20 mg Ziprasidone (Geodon Cap) 20 mg PO Q6 PRN; Protocol PRN Reason: Agitation Last Admin: 04/18/17 19:13 Dose: 20 mg - Labs Labs: 04/18/17 15:30 04/18/17 15:30
[2017-04-19] MEDS ORDERED: Divalproex 250 mg DR (BID formulation) PO SCH ×2 (08:00)
[2017-04-19] MEDS: Divalproex 500 mg ER (ONCE DAILY formulation) PO SCH (08:25)
[2017-04-19] MEDS: OLANZapine 5 mg Disintegrating Tab PO SCH ×2 (08:25→22:13)
--- NOTE | 2017-04-19 16:20 | CP.PCM.PN ---
Subjective - Date & Time of Evaluation Date of Evaluation: 04/19/17 Time of Evaluation: 16:13 - Subjective Subjective: called by nurse pt is agitated, pt has schizophrenia and is severly agitated. Objective - Vital Signs/Intake and Output Vital Signs (last 24 hours): Temp Pulse Resp BP Pulse Ox 98.0 F 89 20 125/80 98 04/17/17 10:00 04/18/17 16:47 04/17/17 10:00 04/18/17 16:47 04/16/17 08:09 - Medications Medications: Current Medications Acetaminophen (Tylenol 325mg Tab) 650 mg PO Q6H PRN PRN Reason: Pain, moderate (4-7) Al Hydrox/Mg Hydrox/Simethicone (Maalox Plus 30 Ml) 30 ml PO DAILY PRN PRN Reason: Indigestion / Heartburn Benztropine Mesylate (Cogentin) 2 mg PO Q4H PRN PRN Reason: Agitation Benztropine Mesylate (Cogentin) 2 mg IM Q4H PRN PRN Reason: Agitation Last Admin: 04/19/17 14:32 Dose: 2 mg Divalproex Sodium (Depakote Dr (*Bid*)) 750 mg PO HS REINA PRN Reason: Protocol Last Admin: 04/18/17 21:15 Dose: 750 mg Divalproex Sodium (Depakote Er(Once Daily)) 500 mg PO DAILY [facility] Last Admin: 04/19/17 08:25 Dose: 500 mg Haloperidol (Haldol) 5 mg PO Q2H PRN; Protocol PRN Reason: Agitation Haloperidol Lactate (Haldol) 5 mg IM Q2H PRN; Protocol PRN Reason: Agitation Last Admin: 04/19/17 14:32 Dose: 5 mg Lorazepam (Ativan) 0.5 mg PO BID REINA PRN Reason: Protocol Last Admin: 04/19/17 08:25 Dose: 0.5 mg Magnesium Hydroxide (Milk Of Magnesia) 30 ml PO DAILY PRN PRN Reason: Constipation Nicotine (Nicoderm Cq) 1 patch TD DAILY [facility] Last Admin: 04/19/17 08:25 Dose: 1 patch Olanzapine (Zyprexa Zydis) 5 mg PO DAILY REINA PRN Reason: Protocol Last Admin: 04/19/17 08:25 Dose: 5 mg Olanzapine (Zyprexa Zydis) 10 mg PO HS REINA PRN Reason: Protocol Last Admin: 04/18/17 21:15 Dose: 10 mg Sertraline HCl (Zoloft) 50 mg PO DAILY REINA Last Admin: 04/19/17 08:25 Dose: 50 mg Trazodone HCl (Desyrel) 100 mg PO HS PRN PRN Reason: Insomnia Ziprasidone (Geodon Inj) 20 mg IM Q6H PRN; Protocol PRN Reason: agitation/pscyhosis Last Admin: 04/19/17 06:44 Dose: 20 mg Ziprasidone (Geodon Cap) 20 mg PO Q6 PRN; Protocol PRN Reason: Agitation Last Admin: 04/19/17 08:39 Dose: 20 mg - Labs Labs: 04/18/17 15:30 04/18/17 15:30 - Constitutional Appears: Agitated - Head Exam Head Exam: NORMOCEPHALIC - Eye Exam Eye Exam: Normal appearance - ENT Exam ENT Exam: Mucous Membranes Moist - Neck Exam Neck Exam: Full ROM - Respiratory Exam Respiratory Exam: Clear to Ausculation Bilateral - Cardiovascular Exam Cardiovascular Exam: RRR, +S1 - GI/Abdominal Exam GI & Abdominal Exam: Soft, Normal Bowel Sounds - Rectal Exam Rectal Exam: Deferred - Extremities Exam Extremities Exam: Full ROM - Neurological Exam Neurological Exam: Awake - Psychiatric Exam Psychiatric exam: Agitated - Skin Skin Exam: Dry, Warm Assessment and Plan - Assessment and Plan (Free Text) Assessment: severe agitation/psychosis. Plan: four point leather restrain.
[2017-04-19] MEDS: Divalproex 250 mg DR (BID formulation) PO SCH (22:12)
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
[2017-04-20] MEDS: Divalproex 500 mg ER (ONCE DAILY formulation) PO SCH (09:10)
[2017-04-20] MEDS: OLANZapine 5 mg Disintegrating Tab PO SCH ×2 (09:11→21:42)
[2017-04-20] MEDS: Divalproex 250 mg DR (BID formulation) PO SCH (21:41)
[2017-04-21 04:39] VITALS: BP 134/88; PULSE 81; TEMP 98.2
--- NOTE | 2017-04-21 05:31 | CP.PCM.PN ---
Subjective - Date & Time of Evaluation Date of Evaluation: 04/21/17 Time of Evaluation: 05:25 (Seen earlier.) - Subjective Subjective: S: Nurse calls to get a signature by a physician because Margret is coming to pick him up for commitment. I checked patient in his room [id number]. He was lying prone in the bed. I asked him how was he doing. He stared, did not reply. Medical record was reviewed. O: Last Vital Signs 3 Temp 98.2 F 04/21/17 04:00 Pulse 81 04/21/17 04:00 Resp 20 04/21/17 04:00 BP 134/88 04/21/17 04:00 Pulse Ox 98 04/16/17 08:09 Awake, alert. LUNGS: Normal breathing pattern. A:For commitment. Schizophrenia history. P:Form was signed by me for commitment. Objective - Vital Signs/Intake and Output Vital Signs (last 24 hours): Temp Pulse Resp BP Pulse Ox 98.2 F 81 20 134/88 98 04/21/17 04:00 04/21/17 04:00 04/21/17 04:00 04/21/17 04:00 04/16/17 08:09 - Medications Medications: Current Medications Acetaminophen (Tylenol 325mg Tab) 650 mg PO Q6H PRN PRN Reason: Pain, moderate (4-7) Al Hydrox/Mg Hydrox/Simethicone (Maalox Plus 30 Ml) 30 ml PO DAILY PRN PRN Reason: Indigestion / Heartburn Benztropine Mesylate (Cogentin) 2 mg PO Q4H PRN PRN Reason: Agitation Last Admin: 04/20/17 21:43 Dose: 2 mg Benztropine Mesylate (Cogentin) 2 mg IM Q4H PRN PRN Reason: Agitation Last Admin: 04/19/17 14:32 Dose: 2 mg Divalproex Sodium (Depakote Dr (*Bid*)) 750 mg PO HS REINA PRN Reason: Protocol Last Admin: 04/20/17 21:41 Dose: 750 mg Divalproex Sodium (Depakote Er(Once Daily)) 500 mg PO DAILY REINA Last Admin: 04/20/17 09:10 Dose: 500 mg Haloperidol (Haldol) 5 mg PO Q2H PRN; Protocol PRN Reason: Agitation Last Admin: 04/19/17 22:13 Dose: 5 mg Haloperidol Lactate (Haldol) 5 mg IM Q2H PRN; Protocol PRN Reason: Agitation Last Admin: 04/20/17 20:45 Dose: 5 mg Lorazepam (Ativan) 0.5 mg PO BID REINA PRN Reason: Protocol Last Admin: 04/20/17 18:14 Dose: 0.5 mg Magnesium Hydroxide (Milk Of Magnesia) 30 ml PO DAILY PRN PRN Reason: Constipation Nicotine (Nicoderm Cq) 1 patch TD DAILY REINA Last Admin: 04/20/17 09:11 Dose: 1 patch Olanzapine (Zyprexa Zydis) 5 mg PO DAILY REINA PRN Reason: Protocol Last Admin: 04/20/17 09:11 Dose: 5 mg Olanzapine (Zyprexa Zydis) 10 mg PO HS REINA PRN Reason: Protocol Last Admin: 04/20/17 21:42 Dose: 10 mg Sertraline HCl (Zoloft) 50 mg PO DAILY REINA Last Admin: 04/20/17 09:11 Dose: 50 mg Trazodone HCl (Desyrel) 100 mg PO HS PRN PRN Reason: Insomnia Last Admin: 04/20/17 21:42 Dose: 100 mg Ziprasidone (Geodon Inj) 20 mg IM Q6H PRN; Protocol PRN Reason: agitation/pscyhosis Last Admin: 04/21/17 04:10 Dose: 20 mg Ziprasidone (Geodon Cap) 20 mg PO Q6 PRN; Protocol PRN Reason: Agitation Last Admin: 04/19/17 08:39 Dose: 20 mg - Labs Labs: 04/18/17 15:30 04/18/17 15:30
== END 2017-04-21 05:00 | DRG 430 ==
LOC: ED 06:28 → ERH 06:47 → PSYC 09:01
PROVIDERS: ADMIT Psychiatry & Neurology Psychiatry; ATTEND Psychiatry & Neurology Psychiatry
PROC: GZ3ZZZZ Medication Management (ICD-10-PCS; principal; 2017-04-16)
DX: F25.9 Schizoaffective disorder, unspecified (principal); R45.851 Suicidal ideations; Z91.14 Patient's other noncompliance with medication regimen; F14.90 Cocaine use, unspecified, uncomplicated; F32.9 Major depressive disorder, single episode, unspecified; F51.02 Adjustment insomnia